=== PATIENT | male | born 1940 | race Caucasian/White ===

== ENCOUNTER 2017-05-13 07:02 | Day surgery (SDC) | payer MEDICARE, OTHER ==
[~2017-05-13] VITALS: Ht 180.3 cm; Wt 127.3 kg
[~2017-05-13 07:02] MED LIST: ALUM-MAG HYDRO360 ML PO; AMOX TR-K250 MG/5 M PO; AZIT500 PO; Amiodarone HCl400 MG PO; CEFU50SU PO; CHOL10002 PO; CYAN500 PO; Cialis20 MG; Cialis20 MG PO; Complete Multi1 EAC1 PO; DICL50ER; DOXA1; DOXA2; ELIQUIS5 MG PO; FENO145 PO; FERR325 PO; FINA5 PO; FISH OIL 1,0001 EAC1 PO; FISH OIL 1,0001 EACH PO; FISH1000 PO; FURO20 PO; GAVILAX17 GM PO; HYDACE5 PO; HYDMOR2 PO; LISI20; LISI20 PO; LISINOPRIL 10MG PO; METF500; METF500 PO; METF500C; METO50ER PO; MULTIVITAMIN PO; NITR.4SL SL; NITR.6SL SL; Norco 10-325 T1 EACH; OMEP20ER; OMEP20ER PO; OXYACE5T PO; Omeprazole20 M1 PO; POTA10T PO; RXHYDACE PO; SIMV20; SIMV40; SIMV40 PO; SIMV80 PO; SIMVASTATIN; TERA5 PO; TRAZ50; TRAZ50 PO; WARF10 PO
== END 2017-05-13 22:42 | disposition home or self-care (01) ==
LOC: MHTC 07:02
PROC: 5A2204Z Restoration of Cardiac Rhythm, Single (ICD-10-PCS; principal; 2017-05-13)
DX: I48.1 Persistent atrial fibrillation (principal); E78.5 Hyperlipidemia, unspecified; E11.9 Type 2 diabetes mellitus without complications; I11.0 Hypertensive heart disease with heart failure; I50.30 Unspecified diastolic (congestive) heart failure; I35.0 Nonrheumatic aortic (valve) stenosis; K21.9 Gastro-esophageal reflux disease without esophagitis; E66.01 Morbid (severe) obesity due to excess calories; Z79.899 Other long term (current) drug therapy; Z79.84 Long term (current) use of oral hypoglycemic drugs; Z79.01 Long term (current) use of anticoagulants; Z87.891 Personal history of nicotine dependence; Z88.8 Allergy status to other drugs, medicaments and biological substances; Z88.5 Allergy status to narcotic agent; Z68.38 Body mass index [BMI] 38.0-38.9, adult
CPT/HCPCS: 92960; 99152; J7030

== ENCOUNTER 2017-05-15 20:17 | Emergency (ER) | payer MEDICARE, OTHER ==
[~2017-05-15] VITALS: Ht 180.3 cm; Wt 127.0 kg
[2017-05-15 20:52] LABS: BASOPHILS ABSOLUTE AUTO 0.03 K/mm3 (0.00-0.23); BASOPHILS PERCENT AUTO 0 % (0-2); EOSINOPHILS PERCENT AUTO 2 % (0-6); Hematocrit 33.3 % (37.0-53.0); Hemoglobin 10.8 g/dL (13.5-17.5); IMMATURE GRAN ABSOLUTE AUTO 0.03 K/mm3 (0.00-0.10); IMMATURE GRAN PERCENT AUTO 0 % (0-1); LYMPHOCYTES ABSOLUTE AUTO 2.38 K/mm3 (0.84-5.20); LYMPHOCYTES PERCENT AUTO 24 % (21-46); MONOCYTES ABSOLUTE AUTO 0.75 K/mm3 (0.16-1.47); MONOCYTES PERCENT AUTO 8 % (4-13); Mean Corpuscular HGB Conc 32.4 g/dL (31.5-36.5); Mean Corpuscular Volume 90 fL (80-100); Mean Platelet Volume 9.7 fL (9.1-12.4); NEUTROPHILS PERCENT AUTO 66 % (41-73); Platelet Count 277 K/mm3 (150-400); RDW Coefficient Variation 14.6 % (11.7-14.2); RDW Standard Deviation 48.1 fL (35.1-46.3); Red Blood Cell Count 3.72 M/mm3 (4.30-5.90); White Blood Cell Count 9.89 K/mm3 (4.00-11.30)
[2017-05-15 21:08] LABS: International Normalized Ratio 1.14; Prothrombin Time Results 11.9 Sec (9.7-11.5)
[2017-05-15 21:12] LABS: Alanine Aminotransfer (ALT/SGP 22 U/L (12-78); Albumin, Blood 3.8 g/dL (3.4-5.0); Albumin/Globulin Ratio 1.2 (0.8-1.8); Alk Phos 42 U/L (50-136); Anion Gap 11 mmol/L (6-16); Aspartate Aminotrans (AST/SGOT 16 U/L (12-37); Bilirubin, Total 0.3 mg/dL (0.1-1.0); Blood Urea Nitrogen 17 mg/dL (8-24); CO2, Blood 24 mmol/L (21-32); Calcium, Blood 8.8 mg/dL (8.5-10.1); Chloride, Blood 107 mmol/L (98-108); Creatinine, Blood 1.06 mg/dL (0.60-1.20); Globulin, Blood 3.3 g/dL (2.2-4.0); Glomerular Filtration Rate >60 (60-); Glucose, Blood 120 mg/dL (70-99); Potassium, Blood 3.8 mmol/L (3.5-5.5); Sodium, Blood 142 mmol/L (136-145); Total Protein, Blood 7.1 g/dL (6.4-8.2); Troponin I <0.015 ng/mL (0.000-0.040)
== END 2017-05-16 00:52 | disposition home or self-care (01) ==
LOC: ER 20:17
PROVIDERS: Emergency Medicine
DX: R07.9 Chest pain, unspecified (principal); E11.9 Type 2 diabetes mellitus without complications; I48.91 Unspecified atrial fibrillation; Z88.8 Allergy status to other drugs, medicaments and biological substances; Z96.653 Presence of artificial knee joint, bilateral; Z90.49 Acquired absence of other specified parts of digestive tract; Z79.899 Other long term (current) drug therapy; Z79.84 Long term (current) use of oral hypoglycemic drugs
CPT/HCPCS: 36415; 71046; 80053; 83880; 84484; 85025; 85610; 85730; 93005; 93010; 99284

== ENCOUNTER 2017-05-26 16:52 | Emergency (ER) | payer OTHER, MEDICARE ==
[~2017-05-26] VITALS: Ht 180.3 cm; Wt 129.3 kg
[2017-05-26 17:58] LABS: Source, Urine Clean Catch
[2017-05-26 18:00] LABS: Bilirubin, Urine Neg (Neg); Blood, Urine 4+ (Neg); Glucose Qualitative, Urine Neg (Neg); Ketones, Urine Neg (Neg); Leukocyte Esterase, Urine Neg (Neg); Nitrite, Urine Neg (Neg); Protein, Urine 1+ (Neg); Urobilinogen, Urine NORM (Normal)
[2017-05-26 18:06] LABS: BASOPHILS ABSOLUTE AUTO 0.05 K/mm3 (0.00-0.23); BASOPHILS PERCENT AUTO 1 % (0-2); EOSINOPHILS PERCENT AUTO 2 % (0-6); Hematocrit 34.7 % (37.0-53.0); IMMATURE GRAN ABSOLUTE AUTO 0.05 K/mm3 (0.00-0.10); IMMATURE GRAN PERCENT AUTO 1 % (0-1); LYMPHOCYTES ABSOLUTE AUTO 2.09 K/mm3 (0.84-5.20); LYMPHOCYTES PERCENT AUTO 24 % (21-46); MONOCYTES PERCENT AUTO 8 % (4-13); Mean Corpuscular HGB 28.6 pg (26.0-34.0); Mean Corpuscular HGB Conc 31.7 g/dL (31.5-36.5); Mean Corpuscular Volume 90 fL (80-100); Mean Platelet Volume 10.5 fL (9.1-12.4); NEUTROPHILS PERCENT AUTO 65 % (41-73); Platelet Count 278 K/mm3 (150-400); RDW Coefficient Variation 14.1 % (11.7-14.2); RDW Standard Deviation 46.4 fL (35.1-46.3); Red Blood Cell Count 3.85 M/mm3 (4.30-5.90); White Blood Cell Count 8.79 K/mm3 (4.00-11.30)
[2017-05-26 18:14] LABS: Appearance, Urine Clear (Clear); Color, Urine Yellow (P-Yellow)
[2017-05-26 18:15] LABS: Red Blood Cells, Urine 25-50 /hpf (0-2); Squamous Epithelial Cells Not Seen /hpf (Few); White Blood Cells, Urine 0-2 /hpf (0-5)
[2017-05-26 18:16] LABS: Bacteria Few /hpf
[2017-05-26 18:29] LABS: Alanine Aminotransfer (ALT/SGP 24 U/L (12-78); Albumin, Blood 3.8 g/dL (3.4-5.0); Albumin/Globulin Ratio 1.1 (0.8-1.8); Alk Phos 35 U/L (50-136); Anion Gap 10 mmol/L (6-16); Aspartate Aminotrans (AST/SGOT 20 U/L (12-37); Bilirubin, Total 0.3 mg/dL (0.1-1.0); Blood Urea Nitrogen 20 mg/dL (8-24); Bun/Creatinine Ratio 20.2 (12.0-20.0); CO2, Blood 25 mmol/L (21-32); Chloride, Blood 107 mmol/L (98-108); Creatinine, Blood 0.99 mg/dL (0.60-1.20); Globulin, Blood 3.4 g/dL (2.2-4.0); Glomerular Filtration Rate >60 (60-); Glucose, Blood 104 mg/dL (70-99); Potassium, Blood 3.6 mmol/L (3.5-5.5); Sodium, Blood 142 mmol/L (136-145); Total Protein, Blood 7.2 g/dL (6.4-8.2); Troponin I 0.016 ng/mL (0.000-0.040)
== END 2017-05-26 19:00 | disposition home or self-care (01) ==
LOC: ER 16:52
PROVIDERS: Emergency Medicine
DX: R55 Syncope and collapse (principal); I10 Essential (primary) hypertension; E11.9 Type 2 diabetes mellitus without complications; R01.1 Cardiac murmur, unspecified; I48.91 Unspecified atrial fibrillation
CPT/HCPCS: 36415; 71046; 80053; 81001; 82947; 83880; 84484; 85025; 93005; 93010; 99284

== ENCOUNTER 2017-06-11 02:38 | Day surgery (SDC) | payer MEDICARE, OTHER ==
[~2017-06-11] VITALS: Ht 182.9 cm; Wt 127.0 kg
== END 2017-06-11 10:57 | disposition home or self-care (01) ==
LOC: MHTC 02:38
PROC: B240ZZ3 Ultrasonography of Single Coronary Artery, Intravascular (ICD-10-PCS; principal; 2017-06-11)
PROC: 4A033BC Measurement of Arterial Pressure, Coronary, Percutaneous Approach (ICD-10-PCS; principal; 2017-06-11)
PROC: B2111ZZ Fluoroscopy of Multiple Coronary Arteries using Low Osmolar Contrast (ICD-10-PCS; principal; 2017-06-11)
DX: I35.0 Nonrheumatic aortic (valve) stenosis (principal); I25.10 Atherosclerotic heart disease of native coronary artery without angina pectoris; R06.02 Shortness of breath; E78.5 Hyperlipidemia, unspecified; K21.9 Gastro-esophageal reflux disease without esophagitis; E11.9 Type 2 diabetes mellitus without complications; I48.91 Unspecified atrial fibrillation; I11.0 Hypertensive heart disease with heart failure; I50.30 Unspecified diastolic (congestive) heart failure; E66.01 Morbid (severe) obesity due to excess calories; Z79.899 Other long term (current) drug therapy; Z79.84 Long term (current) use of oral hypoglycemic drugs; Z87.891 Personal history of nicotine dependence; Z88.8 Allergy status to other drugs, medicaments and biological substances; Z79.01 Long term (current) use of anticoagulants; Z68.38 Body mass index [BMI] 38.0-38.9, adult
CPT/HCPCS: 92978; 93454; 93571; 99152; 99153; C1753; C1769; C1894; J1644; J2250; J3010; J7030; Q9967

== ENCOUNTER 2017-06-23 18:51 | Inpatient (IN) | payer MEDICARE, OTHER ==
[~2017-06-23] VITALS: Ht 180.3 cm; Wt 131.5 kg
[2017-06-23 19:17] LABS: BASOPHILS ABSOLUTE AUTO 0.03 K/mm3 (0.00-0.23); BASOPHILS PERCENT AUTO 0 % (0-2); EOSINOPHILS ABSOLUTE AUTO 0.11 K/mm3 (0.00-0.68); EOSINOPHILS PERCENT AUTO 1 % (0-6); Hematocrit 34.7 % (37.0-53.0); IMMATURE GRAN ABSOLUTE AUTO 0.09 K/mm3 (0.00-0.10); IMMATURE GRAN PERCENT AUTO 1 % (0-1); LYMPHOCYTES ABSOLUTE AUTO 0.67 K/mm3 (0.84-5.20); LYMPHOCYTES PERCENT AUTO 4 % (21-46); MONOCYTES ABSOLUTE AUTO 0.48 K/mm3 (0.16-1.47); MONOCYTES PERCENT AUTO 3 % (4-13); Mean Corpuscular HGB 28.8 pg (26.0-34.0); Mean Corpuscular HGB Conc 31.7 g/dL (31.5-36.5); Mean Corpuscular Volume 91 fL (80-100); Mean Platelet Volume 10.2 fL (9.1-12.4); NEUTROPHILS ABSOLUTE AUTO 13.95 K/mm3 (1.96-9.15); NEUTROPHILS PERCENT AUTO 91 % (41-73); Platelet Count 262 K/mm3 (150-400); RDW Coefficient Variation 14.5 % (11.7-14.2); RDW Standard Deviation 47.4 fL (35.1-46.3); Red Blood Cell Count 3.82 M/mm3 (4.30-5.90); White Blood Cell Count 15.33 K/mm3 (4.00-11.30)
[2017-06-23 19:22] LABS: Source, Urine Clean Catch
[2017-06-23 19:39] LABS: Appearance, Urine Clear (Clear); Bilirubin, Urine Neg (Neg); Blood, Urine 5+ (Neg); Color, Urine Yellow (P-Yellow); Glucose Qualitative, Urine Neg (Neg); Ketones, Urine Neg (Neg); Leukocyte Esterase, Urine 1+ (Neg); Nitrite, Urine Neg (Neg); Protein, Urine 1+ (Neg); Urobilinogen, Urine NORM (Normal)
[2017-06-23 19:41] LABS: Alanine Aminotransfer (ALT/SGP 23 U/L (12-78); Albumin, Blood 3.9 g/dL (3.4-5.0); Albumin/Globulin Ratio 1.1 (0.8-1.8); Alk Phos 29 U/L (50-136); Anion Gap 10 mmol/L (6-16); Aspartate Aminotrans (AST/SGOT 17 U/L (12-37); Bilirubin, Total 0.3 mg/dL (0.1-1.0); Blood Urea Nitrogen 16 mg/dL (8-24); Bun/Creatinine Ratio 16.7 (12.0-20.0); CO2, Blood 27 mmol/L (21-32); Calcium, Blood 9.1 mg/dL (8.5-10.1); Chloride, Blood 104 mmol/L (98-108); Creatinine, Blood 0.96 mg/dL (0.60-1.20); Globulin, Blood 3.6 g/dL (2.2-4.0); Glomerular Filtration Rate >60 (60-); Glucose, Blood 122 mg/dL (70-99); Potassium, Blood 3.6 mmol/L (3.5-5.5); Sodium, Blood 141 mmol/L (136-145); Total Protein, Blood 7.5 g/dL (6.4-8.2)
[2017-06-23 19:58] LABS: Bacteria Few /hpf; Squamous Epithelial Cells Rare /hpf (Few)
[2017-06-23] MEDS ORDERED: METO100ER PO (20:01)
[2017-06-23 20:12] LABS: Influenza A Negative (NEGATIVE); Influenza B Negative (NEGATIVE)
[2017-06-24 04:00] LABS: BASOPHILS ABSOLUTE AUTO 0.03 K/mm3 (0.00-0.23); BASOPHILS PERCENT AUTO 0 % (0-2); EOSINOPHILS ABSOLUTE AUTO 0.06 K/mm3 (0.00-0.68); EOSINOPHILS PERCENT AUTO 0 % (0-6); Hematocrit 31.3 % (37.0-53.0); Hemoglobin 9.8 g/dL (13.5-17.5); IMMATURE GRAN ABSOLUTE AUTO 0.08 K/mm3 (0.00-0.10); IMMATURE GRAN PERCENT AUTO 1 % (0-1); LYMPHOCYTES ABSOLUTE AUTO 0.44 K/mm3 (0.84-5.20); LYMPHOCYTES PERCENT AUTO 3 % (21-46); MONOCYTES ABSOLUTE AUTO 0.49 K/mm3 (0.16-1.47); MONOCYTES PERCENT AUTO 3 % (4-13); Mean Corpuscular HGB 28.7 pg (26.0-34.0); Mean Corpuscular HGB Conc 31.3 g/dL (31.5-36.5); Mean Corpuscular Volume 92 fL (80-100); Mean Platelet Volume 10.5 fL (9.1-12.4); NEUTROPHILS ABSOLUTE AUTO 13.76 K/mm3 (1.96-9.15); NEUTROPHILS PERCENT AUTO 93 % (41-73); Platelet Count 244 K/mm3 (150-400); RDW Coefficient Variation 14.6 % (11.7-14.2); RDW Standard Deviation 48.6 fL (35.1-46.3); Red Blood Cell Count 3.42 M/mm3 (4.30-5.90); White Blood Cell Count 14.86 K/mm3 (4.00-11.30)
[2017-06-24 04:17] LABS: Albumin, Blood 3.2 g/dL (3.4-5.0); Anion Gap 7 mmol/L (6-16); Blood Urea Nitrogen 17 mg/dL (8-24); Bun/Creatinine Ratio 17.8 (12.0-20.0); CO2, Blood 27 mmol/L (21-32); Calcium, Blood 8.6 mg/dL (8.5-10.1); Chloride, Blood 105 mmol/L (98-108); Creatinine, Blood 0.96 mg/dL (0.60-1.20); Glomerular Filtration Rate >60 (60-); Glucose, Blood 111 mg/dL (70-99); Phosphorus, Blood 3.1 mg/dL (2.5-4.9); Potassium, Blood 3.8 mmol/L (3.5-5.5); Sodium, Blood 139 mmol/L (136-145)
[2017-06-25 09:13] LABS: BASOPHILS ABSOLUTE AUTO 0.02 K/mm3 (0.00-0.23); BASOPHILS PERCENT AUTO 0 % (0-2); EOSINOPHILS ABSOLUTE AUTO 0.16 K/mm3 (0.00-0.68); EOSINOPHILS PERCENT AUTO 2 % (0-6); Hematocrit 30.5 % (37.0-53.0); Hemoglobin 9.6 g/dL (13.5-17.5); IMMATURE GRAN ABSOLUTE AUTO 0.04 K/mm3 (0.00-0.10); IMMATURE GRAN PERCENT AUTO 1 % (0-1); LYMPHOCYTES ABSOLUTE AUTO 1.15 K/mm3 (0.84-5.20); LYMPHOCYTES PERCENT AUTO 15 % (21-46); MONOCYTES PERCENT AUTO 5 % (4-13); Mean Corpuscular HGB 28.7 pg (26.0-34.0); Mean Corpuscular HGB Conc 31.5 g/dL (31.5-36.5); Mean Corpuscular Volume 91 fL (80-100); Mean Platelet Volume 10.6 fL (9.1-12.4); NEUTROPHILS ABSOLUTE AUTO 5.75 K/mm3 (1.96-9.15); NEUTROPHILS PERCENT AUTO 77 % (41-73); Platelet Count 254 K/mm3 (150-400); RDW Coefficient Variation 14.9 % (11.7-14.2); RDW Standard Deviation 49.5 fL (35.1-46.3); Red Blood Cell Count 3.35 M/mm3 (4.30-5.90); White Blood Cell Count 7.52 K/mm3 (4.00-11.30)
[2017-06-25] MEDS ORDERED: FURO20 PO (10:01)
[2017-06-25] MEDS ORDERED: POTA20PAC PO (10:03)
[2017-06-25] MEDS ORDERED: LEVO750 PO (10:03)
== END 2017-06-25 11:03 | disposition home or self-care (01) | DRG 871 ==
LOC: ER 18:51 → PCU 21:15
PROVIDERS: Emergency Medicine; Family Medicine; Internal Medicine
DX: A41.9 Sepsis, unspecified organism (principal); J18.9 Pneumonia, unspecified organism; I50.33 Acute on chronic diastolic (congestive) heart failure; I48.0 Paroxysmal atrial fibrillation; E11.9 Type 2 diabetes mellitus without complications; D63.8 Anemia in other chronic diseases classified elsewhere; I11.0 Hypertensive heart disease with heart failure; E66.01 Morbid (severe) obesity due to excess calories; E78.5 Hyperlipidemia, unspecified; I35.0 Nonrheumatic aortic (valve) stenosis; J44.9 Chronic obstructive pulmonary disease, unspecified; I25.10 Atherosclerotic heart disease of native coronary artery without angina pectoris; K21.9 Gastro-esophageal reflux disease without esophagitis; R65.20 Severe sepsis without septic shock; Z68.39 Body mass index [BMI] 39.0-39.9, adult; Z95.2 Presence of prosthetic heart valve; Z88.5 Allergy status to narcotic agent; Z88.8 Allergy status to other drugs, medicaments and biological substances; Z79.01 Long term (current) use of anticoagulants; Z79.84 Long term (current) use of oral hypoglycemic drugs; Z79.899 Other long term (current) drug therapy; Z87.891 Personal history of nicotine dependence
CPT/HCPCS: 36415; 71046; 80053; 80069; 81001; 82947; 83605; 83880; 84484; 85025; 87040; 87086; 87804; 93005; 93010; 96365; 96375; 99285; J0456; J0696; J7030; J7050

== ENCOUNTER 2017-07-22 16:53 | Emergency (ER) | payer MEDICARE, OTHER ==
[~2017-07-22] VITALS: Ht 182.9 cm; Wt 127.0 kg
[~2017-07-22 16:53] MED LIST changes: +LEVO750 PO; +METO100ER PO; +POTA20PAC PO
[2017-07-22] MEDS ORDERED: Adult Low Dose81 MG PO (17:30)
[2017-07-22] MEDS ORDERED: HYDRA50 PO (17:30)
[2017-07-22 18:33] LABS: Hematocrit 27.2 % (37.0-53.0); Hemoglobin 8.3 g/dL (13.5-17.5); Mean Corpuscular HGB 27.6 pg (26.0-34.0); Mean Corpuscular HGB Conc 30.5 g/dL (31.5-36.5); Mean Corpuscular Volume 90 fL (80-100); Mean Platelet Volume 10.1 fL (9.1-12.4); Platelet Count 402 K/mm3 (150-400); RDW Coefficient Variation 16.2 % (11.7-14.2); RDW Standard Deviation 53.8 fL (35.1-46.3); Red Blood Cell Count 3.01 M/mm3 (4.30-5.90); White Blood Cell Count 10.67 K/mm3 (4.00-11.30)
[2017-07-22 18:54] LABS: BAND PERCENT MAN 3 % (0-8); BASOPHILS PERCENT MAN 0 % (0-2); EOSINOPHILS ABSOLUTE MAN 0.21 K/mm3 (0.00-0.68); EOSINOPHILS PERCENT MAN 2 % (0-6); LYMPHOCYTES ABSOLUTE MAN 0.96 K/mm3 (0.84-5.20); LYMPHOCYTES PERCENT MAN 9 % (21-46); METAMYELOCYTE ABSOLUTE MAN 0.21 K/mm3 (0.00-0.00); METAMYELOCYTE PERCENT MAN 2 % (0-0); MONOCYTES ABSOLUTE MAN 0.64 K/mm3 (0.16-1.47); MONOCYTES PERCENT MAN 6 % (4-13); MYELOCYTE PERCENT MAN 1 % (0-0); NEUTROPHILS ABSOLUTE MAN 8.53 K/mm3 (1.96-9.15); SEG NEUTROPHILS PERCENT MAN 77 % (41-73); TOTAL CELLS COUNTED 100
[2017-07-22 18:58] LABS: Alanine Aminotransfer (ALT/SGP 53 U/L (12-78); Albumin, Blood 2.7 g/dL (3.4-5.0); Albumin/Globulin Ratio 0.7 (0.8-1.8); Alk Phos 31 U/L (50-136); Anion Gap 11 mmol/L (6-16); Aspartate Aminotrans (AST/SGOT 50 U/L (12-37); Bilirubin, Total 1.2 mg/dL (0.1-1.0); Blood Urea Nitrogen 12 mg/dL (8-24); Bun/Creatinine Ratio 14.9 (12.0-20.0); CO2, Blood 25 mmol/L (21-32); Calcium, Blood 8.5 mg/dL (8.5-10.1); Chloride, Blood 102 mmol/L (98-108); Creatinine, Blood 0.81 mg/dL (0.60-1.20); Glomerular Filtration Rate >60 (60-); Glucose, Blood 122 mg/dL (70-99); Potassium, Blood 4.1 mmol/L (3.5-5.5); Sodium, Blood 138 mmol/L (136-145); Total Protein, Blood 6.7 g/dL (6.4-8.2)
[2017-07-22] MEDS ORDERED: Keflex500 MG PO (20:09)
== END 2017-07-22 20:25 | disposition home or self-care (01) ==
LOC: ER 16:53
PROVIDERS: Emergency Medicine
DX: T82.538A Leakage of other cardiac and vascular devices and implants, initial encounter (principal); I97.638 Postprocedural hematoma of a circulatory system organ or structure following other circulatory system procedure; E11.9 Type 2 diabetes mellitus without complications; I48.91 Unspecified atrial fibrillation; Z88.5 Allergy status to narcotic agent; Z88.8 Allergy status to other drugs, medicaments and biological substances; Z79.899 Other long term (current) drug therapy; Z79.84 Long term (current) use of oral hypoglycemic drugs; Z87.891 Personal history of nicotine dependence; Z95.820 Peripheral vascular angioplasty status with implants and grafts
CPT/HCPCS: 36415; 76705; 80053; 85025; 99284

== ENCOUNTER 2017-08-04 08:26 | Emergency (ER) | payer OTHER, MEDICARE ==
[~2017-08-04] VITALS: Ht 182.9 cm; Wt 117.9 kg
[~2017-08-04 08:26] MED LIST changes: +Adult Low Dose81 MG PO; +HYDRA50 PO; +Keflex500 MG PO
[2017-08-04 09:31] LABS: BASOPHILS ABSOLUTE AUTO 0.03 K/mm3 (0.00-0.23); BASOPHILS PERCENT AUTO 0 % (0-2); EOSINOPHILS ABSOLUTE AUTO 0.03 K/mm3 (0.00-0.68); EOSINOPHILS PERCENT AUTO 0 % (0-6); Hematocrit 28.7 % (37.0-53.0); Hemoglobin 9.1 g/dL (13.5-17.5); IMMATURE GRAN ABSOLUTE AUTO 0.11 K/mm3 (0.00-0.10); IMMATURE GRAN PERCENT AUTO 1 % (0-1); LYMPHOCYTES ABSOLUTE AUTO 1.25 K/mm3 (0.84-5.20); LYMPHOCYTES PERCENT AUTO 14 % (21-46); MONOCYTES ABSOLUTE AUTO 0.98 K/mm3 (0.16-1.47); MONOCYTES PERCENT AUTO 11 % (4-13); Mean Corpuscular HGB 28.8 pg (26.0-34.0); Mean Corpuscular HGB Conc 31.7 g/dL (31.5-36.5); Mean Corpuscular Volume 91 fL (80-100); Mean Platelet Volume 9.7 fL (9.1-12.4); NEUTROPHILS ABSOLUTE AUTO 6.86 K/mm3 (1.96-9.15); NEUTROPHILS PERCENT AUTO 74 % (41-73); Platelet Count 330 K/mm3 (150-400); RDW Coefficient Variation 17.3 % (11.7-14.2); RDW Standard Deviation 55.4 fL (35.1-46.3); Red Blood Cell Count 3.16 M/mm3 (4.30-5.90); White Blood Cell Count 9.26 K/mm3 (4.00-11.30)
[2017-08-04 09:41] LABS: Anion Gap 10 mmol/L (6-16); Blood Urea Nitrogen 12 mg/dL (8-24); Bun/Creatinine Ratio 15.7 (12.0-20.0); CO2, Blood 23 mmol/L (21-32); Calcium, Blood 8.6 mg/dL (8.5-10.1); Chloride, Blood 103 mmol/L (98-108); Creatinine, Blood 0.76 mg/dL (0.60-1.20); Glomerular Filtration Rate >60 (60-); Glucose, Blood 112 mg/dL (70-99); Sodium, Blood 136 mmol/L (136-145)
[2017-08-04] MEDS ORDERED: Ativan1 MG PO (11:33)
== END 2017-08-04 11:55 | disposition home or self-care (01) ==
LOC: ER 08:26
PROVIDERS: Emergency Medicine
DX: F41.9 Anxiety disorder, unspecified (principal); G47.00 Insomnia, unspecified; I10 Essential (primary) hypertension; J44.9 Chronic obstructive pulmonary disease, unspecified; E11.9 Type 2 diabetes mellitus without complications; I48.91 Unspecified atrial fibrillation; K21.9 Gastro-esophageal reflux disease without esophagitis; Z88.5 Allergy status to narcotic agent; Z88.8 Allergy status to other drugs, medicaments and biological substances; Z79.899 Other long term (current) drug therapy; Z79.82 Long term (current) use of aspirin; Z79.84 Long term (current) use of oral hypoglycemic drugs; Z87.891 Personal history of nicotine dependence
CPT/HCPCS: 36415; 70491; 71046; 71260; 80048; 85025; 93005; 93010; 96374; 99284; J2060; Q9967